=== PATIENT | female | born 1950 | race Caucasian/White ===

== ENCOUNTER 2019-02-08 10:08 | Day surgery (SDC) | payer MEDICARE, MEDICAID ==
[~2019-02-08] VITALS: Ht 161.3 cm; Wt 94.5 kg
[~2019-02-08 10:08] MED LIST: AMLO10TA8 PO; LISI1TAB20 PO; METO25TA35 PO; NAPR220C2 PO; NITR0.4T41 PO; PRAV10TA2 PO; ZOLP10TA PO
[2019-02-08 10:58] VITALS: BP 133/67
[2019-02-08] MEDS ORDERED: CHOL2000 PO (11:09)
[2019-02-08] MEDS ORDERED: DULA0.75 SC (11:09)
[2019-02-08] MEDS ORDERED: METH5TAB6 PO (11:09)
[2019-02-08] MEDS ORDERED: BIOT25005 PO (11:09)
[2019-02-08] MEDS ORDERED: LISI40TA PO (11:09)
[2019-02-08] MEDS ORDERED: ROSU40TA PO (11:09)
[2019-02-08] MEDS ORDERED: ASPI81TA45 PO (11:09)
[2019-02-08] MEDS ORDERED: METF500T17 PO (11:09)
[2019-02-08 11:18] LABS: BASOPHILS # (AUTO) 0.02 x10^3/uL (0-0.1); BASOPHILS % (AUTO) 0 % (0-1); EOSINOPHILS # (AUTO) 0.15 x10^3/uL (0-0.4); EOSINOPHILS % (AUTO) 3 % (1-7); LYMPHOCYTES % (AUTO) 27 % (22-44); MD NO; MEAN CORPUSCULAR HEMOGLOBIN 30.3 pg (27.0-34.8); MEAN CORPUSCULAR HGB CONC 33.2 g/dL (32.4-35.8); MEAN CORPUSCULAR VOLUME 91.2 fL (80-100); MEAN PLATELET VOLUME 10.1 fL (7.4-10.4); MONOCYTES # (AUTO) 0.34 x10^3/uL (0.2-0.8); MONOCYTES % (AUTO) 6 % (2-9); NEUTROPHILS # (AUTO) 3.48 x10^3/uL (1.8-6.8); NEUTROPHILS % (AUTO) 63 % (42-75); PLATELET COUNT 185 x10^3/uL (130-400); RED BLOOD COUNT 4.86 x10^6/uL (3.82-5.3); RED CELL DISTRIBUTION WIDTH 14.5 % (9.6-15.2)
[2019-02-08] MEDS ORDERED: MIDAZOLAM 1 MG/ML, 5ML ONE (11:22)
[2019-02-08] MEDS ORDERED: FENTANYL PF 100 MCG/2ML ONE (11:22)
[2019-02-08] MEDS ORDERED: TICAGRELOR 90 MG TABLET ONE (11:23)
[2019-02-08] MEDS ORDERED: VERAPAMIL 2.5 MG/ML, 2ML ONE (11:23)
[2019-02-08] MEDS ORDERED: LIDOCAINE-MPF 1%, 5ML ONE (11:23)
[2019-02-08] MEDS ORDERED: BIVALIRUDIN 250 MG ONE (11:23)
[2019-02-08] MEDS ORDERED: LIDOCAINE 2%, 20ML ONE (11:35)
== END 2019-02-08 15:13 | disposition home or self-care (01) ==
LOC: CACL 10:08
PROVIDERS: ATTEND Internal Medicine Cardiovascular Disease
DX: R94.39 Abnormal result of other cardiovascular function study (principal); I25.110 Atherosclerotic heart disease of native coronary artery with unstable angina pectoris; I10 Essential (primary) hypertension; E11.9 Type 2 diabetes mellitus without complications; E78.5 Hyperlipidemia, unspecified; E55.9 Vitamin D deficiency, unspecified; E05.00 Thyrotoxicosis with diffuse goiter without thyrotoxic crisis or storm; Z79.82 Long term (current) use of aspirin; Z79.84 Long term (current) use of oral hypoglycemic drugs; Z79.899 Other long term (current) drug therapy; Z88.8 Allergy status to other drugs, medicaments and biological substances
CPT/HCPCS: 36415; 85025; 93459; 99156; C1760; C1769; C1894; J2250; J3010; Q9967; J0583